=== PATIENT | male | born 1995 | race Caucasian/White ===

== ENCOUNTER 2022-11-15 04:55 | Emergency (ER) | payer OTHER ==
[~2022-11-15] VITALS: Ht 187.9 cm; Wt 99.8 kg
[2022-11-15] MEDS ORDERED: IBU600 M1 PO (05:51)
[2022-11-15] MEDS ORDERED: AMOXICILLIN500 M2 PO (05:51)
== END 2022-11-15 05:54 | disposition home or self-care (01) ==
LOC: ED 04:55
DX: S02.5XXA Fracture of tooth (traumatic), initial encounter for closed fracture (principal); K08.89 Other specified disorders of teeth and supporting structures; Z88.8 Allergy status to other drugs, medicaments and biological substances; X58.XXXA Exposure to other specified factors, initial encounter; Y93.89 Activity, other specified; Y92.89 Other specified places as the place of occurrence of the external cause; Y99.8 Other external cause status

== ENCOUNTER 2023-03-11 00:39 | Emergency (ER) | payer OTHER ==
[~2023-03-11] VITALS: Ht 177.8 cm; Wt 81.6 kg
[~2023-03-11 00:39] MED LIST: AMOXICILLIN500 M2 PO; IBU600 M1 PO
[2023-03-11] MEDS ORDERED: CLINDAMYCIN HC300 MG PO (01:55)
[2023-03-11] MEDS ORDERED: IBU800 M2 PO (01:55)
== END 2023-03-11 02:35 | disposition home or self-care (01) ==
LOC: ED 00:39
DX: K08.89 Other specified disorders of teeth and supporting structures (principal); Z88.8 Allergy status to other drugs, medicaments and biological substances

== ENCOUNTER 2023-04-14 05:19 | Emergency (ER) | payer OTHER ==
[~2023-04-14 05:19] MED LIST changes: +CLINDAMYCIN HC300 MG PO; +IBU800 M2 PO
[2023-04-14] MEDS ORDERED: PENICILLIN VK500 MG PO (05:30)
== END 2023-04-14 05:26 | disposition home or self-care (01) ==
LOC: ED 05:19
DX: K02.9 Dental caries, unspecified (principal); K08.89 Other specified disorders of teeth and supporting structures; Z88.8 Allergy status to other drugs, medicaments and biological substances

== ENCOUNTER 2023-08-28 12:04 | Emergency (ER) | payer OTHER ==
[~2023-08-28] VITALS: Wt 88.5 kg
[~2023-08-28 12:04] MED LIST changes: +PENICILLIN VK500 MG PO
[2023-08-28] MEDS ORDERED: AMOXICILLIN875 MG PO (13:31)
[2023-08-28] MEDS ORDERED: IBU800 M1 PO (13:31)
== END 2023-08-28 13:37 | disposition home or self-care (01) ==
LOC: ED 12:04
DX: K04.7 Periapical abscess without sinus (principal); Z88.8 Allergy status to other drugs, medicaments and biological substances